=== PATIENT | female | born 1950 | race African-American/Black ===

== ENCOUNTER 2023-10-31 03:46 | Inpatient (IN) | payer MEDICARE ==
[2023-10-31] VITALS (51 sets, daily range): BP systolic 91–146; BP diastolic 50–76; PULSE 86–123; RESP 15–32; TEMP 98.8–99.6
[~2023-10-31] VITALS: Ht 170.2 cm; Wt 84.4 kg
[2023-10-31] MEDS: SUCCINYLCHOLINE CHLORIDE 200MG/10ML IV ONE (03:59)
[2023-10-31] MEDS: ETOMIDATE 2MG/ML 10ML VIAL IV ONE (03:59)
[2023-10-31] MEDS: PROPOFOL 10MG/ML 100ML 100 ML IV ONE (04:30)
[2023-10-31 04:59] LABS: BASOPHILS % 0.6 % (0.0-2.0); DIFFERENTIAL COMMENT 0; EOSINOPHILS % 0.7 % (0.0-5.0); HEMATOCRIT. 39.9 % (36.0-48.0); HEMOGLOBIN. 12.5 g/dL (12.0-16.0); LYMPHOCYTES % 18.8 % (20.0-50.0); MEAN CORPUSCULAR HEMOGLOBIN 24.7 pg (28.0-32.0); MEAN CORPUSCULAR HGB CONC 31.2 g/dL (31.0-37.0); MEAN CORPUSCULAR VOLUME 79.1 fL (81.0-99.0); MEAN PLATELET VOLUME 7.8 fl (7.4-10.4); NEUTROPHILS % 73.9 % (40.0-76.0); PLATELET 441 x1000/uL (130-400); RED BLOOD CELL COUNT 5.04 mill/uL (4.2-5.4); RED CELL DISTRIBUTION WIDTH 16.1 % (11.6-14.6); WHITE BLOOD COUNT 20.7 x1000/uL (4.5-11.0)
[2023-10-31] MEDS ORDERED: NOREPINEPHRINE 8 MG in DEXT 5% WATER 242 ML IV PRN (05:00)
[2023-10-31 05:06] LABS: CHLORIDE 100 mEq/L (98-107); SODIUM 134 mEq/L (136-145)
[2023-10-31 05:07] LABS: CALCIUM 8.6 mg/dL (8.7-10.4); CARBON DIOXIDE 22 mEq/L (21-32)
[2023-10-31 05:12] LABS: CREATININE 1.3 mg/dL (0.6-1.0); UREA NITROGEN BLOOD 10 mg/dL (9-23)
[2023-10-31 05:13] LABS: ALANINE AMINOTRANSFERASE 24 IU/L (10-49); ALBUMIN 4.2 g/dL (3.2-4.8); ASPARTATE AMINOTRANSFERASE 31 IU/L (<34); BILIRUBIN TOTAL 0.2 mg/dL (0.1-1.0); PROTEIN TOTAL 6.9 g/dL (6.0-8.3)
[2023-10-31] MEDS: VANCOMYCIN 1.5GM/250ML 250 ML IV NR (05:15)
[2023-10-31] MEDS ORDERED: ALBUTEROL (0.083%) 2.5MG/3ML NEB HHN STA (05:18)
[2023-10-31 05:29] LABS: BILIRUBIN DIRECT < 0.1 mg/dL (<=3.0)
[2023-10-31 05:30] LABS: GLUCOSE 443 mg/dL (70-105)
[2023-10-31] MEDS ORDERED: MIDAZOLAM 100MG/100ML PMX 100 ML IV PRN (05:30)
[2023-10-31 05:31] LABS: ETHANOL BLOOD < 10 mg/dL (<10); PHOSPHORUS 8.2 mg/dL (2.5-4.9); TROPONIN I HIGH SENSITIVITY 176 ng/L (3.0-34)
[2023-10-31 05:32] LABS: LACTIC ACID 5.4 mmol/L (0.4-2.0)
[2023-10-31 05:43] LABS: PARTIAL THROMBOPLASTIN TIME 23.6 sec (23.4-31.0); PROTHROMBIN TIME 10.9 sec (9.6-11.0)
[2023-10-31 05:57] LABS: BG BASE EXCESS -8.6 mmol/L (-2.0-2.0); BG CARBOXYHEMOGLOBIN 0.3 % (0.5-1.5); BG DEOXYHEMOGLOBIN 0.5 % (0.0-5.0); BG FRACTION INSPIRED OXYGEN 100; BG HCO3 ACT 19.7 mmol/L (22.0-26.0); BG METHEMOGLOBIN 0.3 % (0.0-1.5); BG OXYGEN SATURATION 99.5 % (92.0-98.5); BG OXYHEMOGLOBIN 98.9 % (94.0-97.0); BG PCO2 51.8 mmHg (35.0-45.0); BG PH 7.198 (7.350-7.450); BG PO2 299.7 mmHg (75.0-100.0); BG SAMPLE SITE RIGHT BRACHIAL; BG TOTAL HEMOGLOBIN 13.9 g/dL (12.0-18.0); BG VENT MODE VENT - AC
[2023-10-31] MEDS: PIPERACILLIN/TAZO 3.375G/50ML 50 ML IV SCH ×2 (06:27→14:30)
[2023-10-31] MEDS ORDERED: ASPIRIN 300MG SUPP PR NR (06:30)
[2023-10-31] MEDS: MIDAZOLAM 100MG/100ML PMX 100 ML IV PRN ×2 (06:31→21:13)
[2023-10-31] MEDS: NOREPINEPHRINE 8MG/250ML PMX 250 ML IV PRN (06:31)
[2023-10-31] MEDS: SODIUM CHLORIDE 0.9% 1000ML BAG (SEPSIS BOLUS) IV ONE (06:33)
[2023-10-31] MEDS ORDERED: PROPOFOL 10MG/ML 100ML 100 ML IV NR (07:38)
[2023-10-31] MEDS ORDERED: ACETAMINOPHEN 325MG TABLET PO PRN (08:00)
[2023-10-31] MEDS ORDERED: DOCUSATE SODIUM 100MG CAPSULE PO PRN (08:00)
[2023-10-31] MEDS ORDERED: DEXTROSE 50% WATER 50ML SYRINGE IV PRN (08:00)
[2023-10-31] MEDS ORDERED: IPRATROPIUM/ALBUTEROL 0.5-3(2.5)MG/3ML NEB HHN PRN (08:00)
[2023-10-31] MEDS: PANTOPRAZOLE SODIUM 40 MG/VIAL IV SCH (09:46)
[2023-10-31] MEDS: BLOOD SUGAR DIAGNOSTIC STRIP TEST SCH (09:47)
[2023-10-31] MEDS: METHYLPREDNISOLONE SOD SUCC 40MG/ML (ACT-O-VIAL) IV SCH (09:47)
[2023-10-31] MEDS: ENOXAPARIN 30MG/0.3ML SYR SUBCUT SCH (09:47)
[2023-10-31] MEDS: SODIUM CHLORIDE 0.9% 1,000 ML IV SCH (09:50)
[2023-10-31 09:58] LABS: CREATINE KINASE 225 IU/L (34-145)
[2023-10-31 10:21] LABS: TROPONIN I HIGH SENSITIVITY 2254 ng/L (3.0-34)
[2023-10-31] MEDS ORDERED: PHENYLEPHRINE 50MG/250ML PMX 250 ML IV PRN (10:30)
[2023-10-31] MEDS: INSULIN LISPRO 100 UNITS/ML SUBCUT SCH (10:39)
[2023-10-31 11:21] LABS: BG BASE EXCESS -8.8 mmol/L (-2.0-2.0); BG CARBOXYHEMOGLOBIN 0.1 % (0.5-1.5); BG DEOXYHEMOGLOBIN 9.1 % (0.0-5.0); BG FRACTION INSPIRED OXYGEN 40; BG HCO3 ACT 15.7 mmol/L (22.0-26.0); BG METHEMOGLOBIN 0.3 % (0.0-1.5); BG OXYGEN SATURATION 90.9 % (92.0-98.5); BG OXYHEMOGLOBIN 90.5 % (94.0-97.0); BG PCO2 29.7 mmHg (35.0-45.0); BG PO2 62.9 mmHg (75.0-100.0); BG SAMPLE SITE RIGHT RADIAL; BG TOTAL HEMOGLOBIN 12.8 g/dL (12.0-18.0); BG TOTAL RESPIRATORY RATE 24 b/min; BG VENT MODE VENT - AC
[2023-10-31] MEDS: MAGNESIUM 2 G PREMIX 50 ML IV NR (13:20)
[2023-10-31] MEDS: PHENYLEPHRINE 50MG/250ML PMX 250 ML IV PRN (13:22)
[2023-10-31] MEDS: IPRATROPIUM/ALBUTEROL 0.5-3(2.5)MG/3ML NEB HHN SCH (14:45)
[2023-10-31 15:38] LABS: CLARITY URINE CLEAR (CLEAR); COLOR URINE YELLOW (YELLOW); GLUCOSE URINE 3+ (NEGATIVE); KETONES URINE 2+ (NEGATIVE); LEUKOCYTE ESTERASE URINE NEGATIVE (NEGATIVE); NITRITE URINE NEGATIVE (NEGATIVE); OCCULT BLOOD URINE NEGATIVE (NEGATIVE); PH URINE 5.5 (4.5-8.0); PROTEIN URINE 1+ (NEGATIVE); SPECIFIC GRAVITY URINE 1.026 (1.005-1.030); UROBILINOGEN URINE 0.2 E.U./dL (0.2-1.0)
[2023-10-31 15:54] LABS: *AMPHETAMINES SCREEN URINE NEGATIVE (NEGATIVE); *BARBITURATES SCREEN URINE NEGATIVE (NEGATIVE); *BENZODIAZEPINES SCREEN URINE PRESUMPTIVE POSITIVE (NEGATIVE)
[2023-10-31 15:55] LABS: *COCAINE SCREEN URINE NEGATIVE (NEGATIVE); CANNABINOID URINE SCREEN NEGATIVE (NEGATIVE); ECSTASY MDMA SCREEN URINE NEGATIVE (NEGATIVE); METHADONE URINE SCREEN NEGATIVE (NEGATIVE); OPIATES URINE SCREEN NEGATIVE (NEGATIVE); PHENCYCLIDINE URINE SCREEN NEGATIVE (NEGATIVE)
[2023-10-31] MEDS: DOXYCYCLINE 100MG/100ML 100 ML IV SCH (15:59)
[2023-10-31 16:06] LABS: BACTERIA URINE 1+; RBC URINE 0-2 /hpf (0-2); SQUAMOUS EPITHELIAL CELL URINE FEW /lpf (RARE/1+); WBC URINE 0-2 /hpf (0-2)
[2023-10-31 16:31] LABS: TROPONIN I HIGH SENSITIVITY 3595 ng/L (3.0-34)
[2023-10-31] MEDS: MONTELUKAST SODIUM 10MG TABLET PO SCH (17:36)
[2023-10-31] MEDS: INSULIN GLARGINE 100 UNITS/ML SUBCUT SCH (22:18)
[2023-10-31 23:58] LABS: TROPONIN I HIGH SENSITIVITY 2332 ng/L (3.0-34)
[2023-11-01] VITALS (60 sets, daily range): BP systolic 53–160; BP diastolic 40–71; PULSE 92–143; RESP 13–53; TEMP 97.8–98.9
[2023-11-01 04:54] LABS: HEMATOCRIT. 33.9 % (36.0-48.0); HEMOGLOBIN. 10.9 g/dL (12.0-16.0); MEAN CORPUSCULAR HEMOGLOBIN 24.8 pg (28.0-32.0); MEAN CORPUSCULAR HGB CONC 32.1 g/dL (31.0-37.0); MEAN CORPUSCULAR VOLUME 77.4 fL (81.0-99.0); PLATELET 333 x1000/uL (130-400); RED BLOOD CELL COUNT 4.39 mill/uL (4.2-5.4); RED CELL DISTRIBUTION WIDTH 16.3 % (11.6-14.6); WHITE BLOOD COUNT 11.1 x1000/uL (4.5-11.0)
[2023-11-01 04:59] LABS: CHLORIDE 103 mEq/L (98-107); POTASSIUM 4.3 mEq/L (3.5-5.1); SODIUM 133 mEq/L (136-145)
[2023-11-01 05:01] LABS: CARBON DIOXIDE 18 mEq/L (21-32)
[2023-11-01 05:02] LABS: CALCIUM 8.4 mg/dL (8.7-10.4)
[2023-11-01 05:07] LABS: CREATININE 1.1 mg/dL (0.6-1.0); UREA NITROGEN BLOOD 16 mg/dL (9-23)
[2023-11-01 05:08] LABS: ALBUMIN 3.7 g/dL (3.2-4.8)
[2023-11-01 05:09] LABS: ALANINE AMINOTRANSFERASE 22 IU/L (10-49); ASPARTATE AMINOTRANSFERASE 36 IU/L (<34); BILIRUBIN TOTAL 0.3 mg/dL (0.1-1.0)
[2023-11-01 05:59] LABS: PROTHROMBIN TIME 11.2 sec (9.6-11.0)
[2023-11-01 06:01] LABS: GLUCOSE 404 mg/dL (70-105); TROPONIN I HIGH SENSITIVITY 2018 ng/L (3.0-34)
[2023-11-01 07:00] LABS: DIFFERENTIAL COMMENT 1
[2023-11-01] MEDS ORDERED: INSULIN REGULAR (HUMULIN R) UD 100 UNITS/ML SYR SUBCUT SCH (08:00)
[2023-11-01] MEDS: INSULIN REGULAR (HUMULIN R) 1000UNITS/10ML VIAL SUBCUT SCH (08:34)
[2023-11-01 09:42] LABS: PLATELET ESTIMATE NORMAL
[2023-11-01 09:44] LABS: BG CARBOXYHEMOGLOBIN 0.3 % (0.5-1.5); BG DEOXYHEMOGLOBIN 3.5 % (0.0-5.0); BG FRACTION INSPIRED OXYGEN 60; BG HCO3 ACT 15.1 mmol/L (22.0-26.0); BG METHEMOGLOBIN 0.3 % (0.0-1.5); BG OXYGEN SATURATION 96.5 % (92.0-98.5); BG OXYHEMOGLOBIN 95.9 % (94.0-97.0); BG PCO2 27.2 mmHg (35.0-45.0); BG PH 7.361 (7.350-7.450); BG PO2 93.6 mmHg (75.0-100.0); BG SAMPLE SITE RIGHT RADIAL; BG TOTAL HEMOGLOBIN 11.6 g/dL (12.0-18.0); BG VENT MODE VENT - AC
[2023-11-01 10:19] LABS: ANISOCYTOSIS 1+; MICROCYTOSIS 1+
[2023-11-01] MEDS: MAGNESIUM 2 G PREMIX 50 ML IV NR (11:15)
[2023-11-01] MEDS: DEXT 5%/0.9% NACL 1,000 ML IV SCH (13:15)
[2023-11-01] MEDS ORDERED: KCL 20MEQ/100ML PREMIX 100 ML IV PRN (13:15)
[2023-11-01] MEDS ORDERED: MAGNESIUM 2 G PREMIX 50 ML IV PRN (13:15)
[2023-11-01] MEDS ORDERED: POTASSIUM CHLORIDE 40 MEQ in SODIUM CHLORIDE 0.9% 230 ML IV PRN (13:15)
[2023-11-01] MEDS ORDERED: SODIUM PHOSPHATE 15 MMOL in SODIUM CHLORIDE 0.9% 245 ML IV PRN (13:15)
[2023-11-01] MEDS ORDERED: DEXTROSE 50% WATER 50ML SYRINGE IV PRN (13:15)
[2023-11-01] MEDS: SODIUM CHLORIDE 0.9% 1,000 ML IV SCH (13:38)
[2023-11-01] MEDS: INSULIN GLARGINE 100 UNITS/ML SUBCUT NR (13:39)
[2023-11-01 13:52] LABS: BG BASE EXCESS -6.4 mmol/L (-2.0-2.0); BG CARBOXYHEMOGLOBIN 0.3 % (0.5-1.5); BG DEOXYHEMOGLOBIN 12.2 % (0.0-5.0); BG FRACTION INSPIRED OXYGEN 50; BG HCO3 ACT 18.4 mmol/L (22.0-26.0); BG METHEMOGLOBIN 0.3 % (0.0-1.5); BG OXYGEN SATURATION 87.7 % (92.0-98.5); BG OXYHEMOGLOBIN 87.2 % (94.0-97.0); BG PCO2 34.4 mmHg (35.0-45.0); BG PH 7.346 (7.350-7.450); BG PO2 57.4 mmHg (75.0-100.0); BG SAMPLE SITE RIGHT RADIAL; BG TOTAL HEMOGLOBIN 13.5 g/dL (12.0-18.0); BG VENT MODE VENT - AC
[2023-11-01] MEDS ORDERED: BLOOD SUGAR DIAGNOSTIC STRIP TEST PRN (14:00)
[2023-11-01] MEDS: INSULIN REGULAR (DRIP) 100 UNITS in SODIUM CHLORIDE 0.9% 99 ML IV SCH (14:17)
[2023-11-01] MEDS: BLOOD SUGAR DIAGNOSTIC STRIP TEST SCH (14:23)
[2023-11-01] MEDS: PROPOFOL 10MG/ML 100ML 100 ML IV PRN (14:36)
[2023-11-01] MEDS: ACETYLCYSTEINE 200MG/ML 20% VIAL 4ML INH SCH (15:23)
[2023-11-01] MEDS ORDERED: HEPARIN 5000 UNITS/ML VIAL IV PRN (15:45)
[2023-11-01] MEDS ORDERED: HEPARIN 25,000 UNITS PREMIX 250 ML IV PRN (15:45)
[2023-11-01] MEDS ORDERED: SODIUM CHLORIDE 3% FOR INH 15ML NEB INH SCH (16:00)
[2023-11-01 16:04] LABS: CHLORIDE 107 mEq/L (98-107); POTASSIUM 4.2 mEq/L (3.5-5.1); SODIUM 137 mEq/L (136-145)
[2023-11-01 16:05] LABS: CALCIUM 7.9 mg/dL (8.7-10.4); CARBON DIOXIDE 20 mEq/L (21-32)
[2023-11-01 16:10] LABS: CREATININE 1.1 mg/dL (0.6-1.0); GLUCOSE 362 mg/dL (70-105); UREA NITROGEN BLOOD 18 mg/dL (9-23)
[2023-11-01 16:12] LABS: PHOSPHORUS 3.4 mg/dL (2.5-4.9)
[2023-11-01] MEDS ORDERED: HEPARIN BOLUS PRN aPTT 37-44 IV ×2 (16:45→23:00)
[2023-11-01] MEDS ORDERED: HEPARIN BOLUS PRN aPTT <36 IV ×2 (16:45→23:00)
[2023-11-01] MEDS ORDERED: HEPARIN 25,000 UNITS PREMIX 250 ML IV SCH (16:45)
[2023-11-01] MEDS: HEPARIN 25,000 UNITS PREMIX 250 ML IV SCH (16:56)
[2023-11-01] MEDS ORDERED: IOHEXOL-350 100 ML BOTTLE ONE (19:15)
[2023-11-01 20:59] LABS: CHLORIDE 110 mEq/L (98-107); POTASSIUM 3.9 mEq/L (3.5-5.1); SODIUM 139 mEq/L (136-145)
[2023-11-01 21:01] LABS: CARBON DIOXIDE 22 mEq/L (21-32)
[2023-11-01 21:08] LABS: PHOSPHORUS 2.8 mg/dL (2.5-4.9)
[2023-11-01] MEDS: INSULIN GLARGINE 100 UNITS/ML SUBCUT SCH (22:34)
[2023-11-02] VITALS (80 sets, daily range): BP systolic 91–157; BP diastolic 52–76; PULSE 97–138; RESP 18–35; TEMP 97.5–100.4
[2023-11-02 00:31] LABS: CHLORIDE 111 mEq/L (98-107); POTASSIUM 3.9 mEq/L (3.5-5.1); SODIUM 139 mEq/L (136-145)
[2023-11-02 00:32] LABS: CARBON DIOXIDE 20 mEq/L (21-32)
[2023-11-02 00:40] LABS: PHOSPHORUS 2.4 mg/dL (2.5-4.9)
[2023-11-02 05:33] LABS: CARBON DIOXIDE 21 mEq/L (21-32); CHLORIDE 111 mEq/L (98-107); SODIUM 139 mEq/L (136-145)
[2023-11-02 05:34] LABS: CALCIUM 7.9 mg/dL (8.7-10.4)
[2023-11-02 05:38] LABS: CREATININE 0.8 mg/dL (0.6-1.0); GLUCOSE 204 mg/dL (70-105)
[2023-11-02 05:39] LABS: TRIGLYCERIDE 154 mg/dL (0-150); UREA NITROGEN BLOOD 14 mg/dL (9-23)
[2023-11-02 05:41] LABS: PHOSPHORUS 2.6 mg/dL (2.5-4.9)
[2023-11-02 05:45] LABS: BASOPHILS % 0.1 % (0.0-2.0); DIFFERENTIAL COMMENT 0; EOSINOPHILS % 0.3 % (0.0-5.0); HEMOGLOBIN. 10.9 g/dL (12.0-16.0); LYMPHOCYTES % 11.8 % (20.0-50.0); MEAN CORPUSCULAR HEMOGLOBIN 25.2 pg (28.0-32.0); MEAN CORPUSCULAR VOLUME 78.7 fL (81.0-99.0); MEAN PLATELET VOLUME 7.9 fl (7.4-10.4); MONOCYTES % 8.1 % (2.0-8.0); NEUTROPHILS % 79.7 % (40.0-76.0); PLATELET 330 x1000/uL (130-400); RED BLOOD CELL COUNT 4.31 mill/uL (4.2-5.4); RED CELL DISTRIBUTION WIDTH 16.8 % (11.6-14.6)
[2023-11-02 06:23] LABS: TROPONIN I HIGH SENSITIVITY 1124 ng/L (3.0-34)
[2023-11-02] MEDS ORDERED: DEXTROSE 50% WATER 50ML SYRINGE IV PRN (08:45)
[2023-11-02] MEDS: ENOXAPARIN 30MG/0.3ML SYR SUBCUT SCH (08:53)
[2023-11-02 08:56] LABS: BG BASE EXCESS -4.3 mmol/L (-2.0-2.0); BG CARBOXYHEMOGLOBIN 0.3 % (0.5-1.5); BG DEOXYHEMOGLOBIN 8.3 % (0.0-5.0); BG FRACTION INSPIRED OXYGEN 50; BG HCO3 ACT 19.7 mmol/L (22.0-26.0); BG METHEMOGLOBIN 0.2 % (0.0-1.5); BG OXYGEN SATURATION 91.7 % (92.0-98.5); BG OXYHEMOGLOBIN 91.2 % (94.0-97.0); BG PCO2 32.9 mmHg (35.0-45.0); BG PH 7.395 (7.350-7.450); BG PO2 64.5 mmHg (75.0-100.0); BG SAMPLE SITE LEFT RADIAL; BG TOTAL HEMOGLOBIN 12.4 g/dL (12.0-18.0); BG VENT MODE VENT - AC
[2023-11-02] MEDS: BLOOD SUGAR DIAGNOSTIC STRIP TEST SCH (12:12)
[2023-11-02] MEDS: INSULIN LISPRO 100 UNITS/ML SUBCUT SCH (12:27)
[2023-11-02] MEDS: PROPOFOL 10MG/ML 100ML 100 ML IV PRN (19:37)
[2023-11-02] MEDS: ACETAMINOPHEN 650MG/20.3ML UDC GT PRN (22:01)
[2023-11-03] VITALS (52 sets, daily range): BP systolic 107–156; BP diastolic 54–82; PULSE 89–129; RESP 4–29; TEMP 98.9–101.3
[2023-11-03 05:07] LABS: BASOPHILS % 0.3 % (0.0-2.0); DIFFERENTIAL COMMENT 0; HEMATOCRIT. 32.6 % (36.0-48.0); HEMOGLOBIN. 10.5 g/dL (12.0-16.0); LYMPHOCYTES % 16.9 % (20.0-50.0); MEAN CORPUSCULAR HEMOGLOBIN 24.7 pg (28.0-32.0); MEAN CORPUSCULAR HGB CONC 32.1 g/dL (31.0-37.0); MEAN PLATELET VOLUME 8.1 fl (7.4-10.4); MONOCYTES % 8.4 % (2.0-8.0); NEUTROPHILS % 73.4 % (40.0-76.0); PLATELET 355 x1000/uL (130-400); RED BLOOD CELL COUNT 4.23 mill/uL (4.2-5.4); RED CELL DISTRIBUTION WIDTH 16.9 % (11.6-14.6); WHITE BLOOD COUNT 12.3 x1000/uL (4.5-11.0)
[2023-11-03 05:09] LABS: CARBON DIOXIDE 22 mEq/L (21-32); CHLORIDE 108 mEq/L (98-107); SODIUM 138 mEq/L (136-145)
[2023-11-03 05:10] LABS: CALCIUM 8.3 mg/dL (8.7-10.4)
[2023-11-03 05:15] LABS: CREATININE 0.9 mg/dL (0.6-1.0); GLUCOSE 230 mg/dL (70-105); TRIGLYCERIDE 182 mg/dL (0-150); UREA NITROGEN BLOOD 18 mg/dL (9-23)
[2023-11-03] MEDS ORDERED: LIDOCAINE HCL 1% 10 MG/ML 10ML VIAL ONE (07:10)
[2023-11-03] MEDS: SODIUM CHLORIDE 3% FOR INH 4ML NEB INH SCH (08:12)
[2023-11-03] MEDS: FUROSEMIDE 40MG/4ML VIAL IVP SCH (09:29)
[2023-11-03 09:42] LABS: BG BASE EXCESS -4.3 mmol/L (-2.0-2.0); BG CARBOXYHEMOGLOBIN 0.3 % (0.5-1.5); BG DEOXYHEMOGLOBIN 5.9 % (0.0-5.0); BG FRACTION INSPIRED OXYGEN 80; BG HCO3 ACT 19.3 mmol/L (22.0-26.0); BG METHEMOGLOBIN 0.2 % (0.0-1.5); BG OXYGEN SATURATION 94.1 % (92.0-98.5); BG OXYHEMOGLOBIN 93.6 % (94.0-97.0); BG PCO2 30.7 mmHg (35.0-45.0); BG PH 7.417 (7.350-7.450); BG PO2 71.4 mmHg (75.0-100.0); BG SAMPLE SITE RIGHT RADIAL; BG TOTAL HEMOGLOBIN 11.4 g/dL (12.0-18.0); BG VENT MODE VENT - AC
[2023-11-03] MEDS: ONDANSETRON HCL 4MG/2ML INJ IV PRN (12:52)
[2023-11-03] MEDS: ACETAMINOPHEN 650MG/20.3ML UDC GT PRN (13:07)
[2023-11-03] MEDS: INSULIN GLARGINE 100 UNITS/ML SUBCUT SCH (21:21)
[2023-11-04] VITALS (37 sets, daily range): BP systolic 108–156; BP diastolic 52–77; PULSE 85–112; RESP 19–26; TEMP 99–100.5
[2023-11-04 05:25] LABS: BASOPHILS % 0.2 % (0.0-2.0); DIFFERENTIAL COMMENT 0; HEMATOCRIT. 31.5 % (36.0-48.0); HEMOGLOBIN. 10.2 g/dL (12.0-16.0); LYMPHOCYTES % 13.7 % (20.0-50.0); MEAN CORPUSCULAR HEMOGLOBIN 24.9 pg (28.0-32.0); MEAN CORPUSCULAR HGB CONC 32.5 g/dL (31.0-37.0); MEAN CORPUSCULAR VOLUME 76.7 fL (81.0-99.0); MEAN PLATELET VOLUME 8.1 fl (7.4-10.4); MONOCYTES % 7.5 % (2.0-8.0); NEUTROPHILS % 77.6 % (40.0-76.0); PLATELET 356 x1000/uL (130-400); RED BLOOD CELL COUNT 4.11 mill/uL (4.2-5.4); RED CELL DISTRIBUTION WIDTH 16.2 % (11.6-14.6); WHITE BLOOD COUNT 11.4 x1000/uL (4.5-11.0)
[2023-11-04 05:28] LABS: CALCIUM 8.8 mg/dL (8.7-10.4); CARBON DIOXIDE 23 mEq/L (21-32); CHLORIDE 106 mEq/L (98-107); POTASSIUM 3.2 mEq/L (3.5-5.1); SODIUM 139 mEq/L (136-145)
[2023-11-04 05:33] LABS: CREATININE 0.9 mg/dL (0.6-1.0)
[2023-11-04 05:34] LABS: GLUCOSE 231 mg/dL (70-105); UREA NITROGEN BLOOD 21 mg/dL (9-23)
[2023-11-04 08:19] LABS: BG BASE EXCESS 1.5 mmol/L (-2.0-2.0); BG CARBOXYHEMOGLOBIN 0.3 % (0.5-1.5); BG DEOXYHEMOGLOBIN 5.1 % (0.0-5.0); BG FRACTION INSPIRED OXYGEN 60; BG HCO3 ACT 23.9 mmol/L (22.0-26.0); BG METHEMOGLOBIN 0.2 % (0.0-1.5); BG OXYGEN SATURATION 94.9 % (92.0-98.5); BG OXYHEMOGLOBIN 94.4 % (94.0-97.0); BG PCO2 29.9 mmHg (35.0-45.0); BG PH 7.521 (7.350-7.450); BG PO2 72.5 mmHg (75.0-100.0); BG SAMPLE SITE RIGHT RADIAL; BG VENT MODE VENT - AC
[2023-11-04] MEDS: KCL 20MEQ/100ML PREMIX 100 ML IV SCH (10:01)
[2023-11-04] MEDS: SODIUM CHLORIDE 3% FOR INH 4ML NEB INH NR (10:14)
[2023-11-05] VITALS (35 sets, daily range): BP systolic 124–169; BP diastolic 54–113; PULSE 99–138; RESP 15–40; TEMP 98.3–100.8
[2023-11-05] MEDS: INSULIN LISPRO 100 UNITS/ML SUBCUT SCH (00:47)
[2023-11-05] MEDS: DILTIAZEM HCL 5MG/ML 5ML VIAL IV PRN (02:56)
[2023-11-05 05:40] LABS: BASOPHILS % 0.3 % (0.0-2.0); DIFFERENTIAL COMMENT 0; EOSINOPHILS % 1.6 % (0.0-5.0); HEMATOCRIT. 33.5 % (36.0-48.0); HEMOGLOBIN. 10.7 g/dL (12.0-16.0); LYMPHOCYTES % 9.6 % (20.0-50.0); MEAN CORPUSCULAR HEMOGLOBIN 24.8 pg (28.0-32.0); MEAN CORPUSCULAR HGB CONC 31.9 g/dL (31.0-37.0); MONOCYTES % 7.2 % (2.0-8.0); NEUTROPHILS % 81.3 % (40.0-76.0); PLATELET 416 x1000/uL (130-400); RED CELL DISTRIBUTION WIDTH 16.1 % (11.6-14.6); WHITE BLOOD COUNT 15.5 x1000/uL (4.5-11.0)
[2023-11-05 05:45] LABS: CHLORIDE 108 mEq/L (98-107); POTASSIUM 3.7 mEq/L (3.5-5.1); SODIUM 142 mEq/L (136-145)
[2023-11-05 05:46] LABS: CARBON DIOXIDE 27 mEq/L (21-32)
[2023-11-05 05:47] LABS: CALCIUM 9.7 mg/dL (8.7-10.4)
[2023-11-05 05:51] LABS: CREATININE 0.9 mg/dL (0.6-1.0); GLUCOSE 268 mg/dL (70-105)
[2023-11-05 05:52] LABS: UREA NITROGEN BLOOD 20 mg/dL (9-23)
[2023-11-05] MEDS: CLONIDINE 0.1MG TABLET PO PRN (07:09)
[2023-11-05 08:24] LABS: BG BASE EXCESS 1.6 mmol/L (-2.0-2.0); BG CARBOXYHEMOGLOBIN 0.2 % (0.5-1.5); BG DEOXYHEMOGLOBIN 3.7 % (0.0-5.0); BG FRACTION INSPIRED OXYGEN 60; BG HCO3 ACT 26.5 mmol/L (22.0-26.0); BG METHEMOGLOBIN 0.2 % (0.0-1.5); BG OXYGEN SATURATION 96.3 % (92.0-98.5); BG OXYHEMOGLOBIN 95.9 % (94.0-97.0); BG PCO2 43.1 mmHg (35.0-45.0); BG PH 7.407 (7.350-7.450); BG PO2 87.1 mmHg (75.0-100.0); BG SAMPLE SITE RIGHT RADIAL; BG TOTAL HEMOGLOBIN 12.4 g/dL (12.0-18.0); BG VENT MODE VENT - AC
[2023-11-05] MEDS: MAGNESIUM 2 G PREMIX 50 ML IV NR (10:40)
[2023-11-05] MEDS: AMLODIPINE 5MG TABLET PO SCH (10:40)
[2023-11-05] MEDS: METOPROLOL TARTRATE 50MG TABLET PO SCH (15:09)
[2023-11-05] MEDS: LACTOBACILLUS GG CAPSULE PO SCH (18:09)
[2023-11-05] MEDS: ALBUTEROL (0.083%) 2.5MG/3ML NEB ONE (20:37)
[2023-11-06] VITALS (61 sets, daily range): BP systolic 83–184; BP diastolic 50–93; PULSE 89–120; RESP 17–31; TEMP 98.8–101.5
[2023-11-06] MEDS: ACETAMINOPHEN 325MG TABLET PO PRN (01:15)
[2023-11-06 05:02] LABS: BASOPHILS % 0.6 % (0.0-2.0); DIFFERENTIAL COMMENT 0; EOSINOPHILS % 1.6 % (0.0-5.0); HEMATOCRIT. 33.8 % (36.0-48.0); HEMOGLOBIN. 10.8 g/dL (12.0-16.0); LYMPHOCYTES % 11.5 % (20.0-50.0); MEAN CORPUSCULAR HEMOGLOBIN 24.3 pg (28.0-32.0); MEAN CORPUSCULAR HGB CONC 31.9 g/dL (31.0-37.0); MEAN CORPUSCULAR VOLUME 76.3 fL (81.0-99.0); MEAN PLATELET VOLUME 7.6 fl (7.4-10.4); MONOCYTES % 9.7 % (2.0-8.0); NEUTROPHILS % 76.6 % (40.0-76.0); PLATELET 407 x1000/uL (130-400); RED BLOOD CELL COUNT 4.42 mill/uL (4.2-5.4); RED CELL DISTRIBUTION WIDTH 15.9 % (11.6-14.6); WHITE BLOOD COUNT 13.4 x1000/uL (4.5-11.0)
[2023-11-06 05:08] LABS: CHLORIDE 105 mEq/L (98-107); POTASSIUM 3.2 mEq/L (3.5-5.1); SODIUM 143 mEq/L (136-145)
[2023-11-06 05:09] LABS: CALCIUM 9.8 mg/dL (8.7-10.4); CARBON DIOXIDE 30 mEq/L (21-32)
[2023-11-06 05:14] LABS: GLUCOSE 232 mg/dL (70-105); UREA NITROGEN BLOOD 24 mg/dL (9-23)
[2023-11-06] MEDS: METHYLPREDNISOLONE SOD SUCC 125MG/2ML (ACT-O-VIAL) IV SCH (09:19)
[2023-11-06] MEDS: POTASSIUM CHLORIDE 20MEQ/PACKET PO NR (09:19)
[2023-11-06] MEDS: LOSARTAN 50 MG TABLET PO SCH (11:39)
[2023-11-06] MEDS: CLONIDINE 0.1MG TABLET PO PRN (11:39)
[2023-11-06] MEDS: IPRATROPIUM/ALBUTEROL 0.5-3(2.5)MG/3ML NEB HHN PRN (13:07)
[2023-11-06] MEDS: IPRATROPIUM/ALBUTEROL 0.5-3(2.5)MG/3ML NEB HHN SCH (14:03)
[2023-11-06] MEDS: ACETYLCYSTEINE 200MG/ML 20% VIAL 4ML INH SCH (14:04)
[2023-11-07] VITALS (62 sets, daily range): BP systolic 126–166; BP diastolic 49–89; PULSE 86–117; RESP 12–32; TEMP 98–102
[2023-11-07 04:46] LABS: BASOPHILS % 0.1 % (0.0-2.0); CHLORIDE 105 mEq/L (98-107); DIFFERENTIAL COMMENT 0; HEMATOCRIT. 32.6 % (36.0-48.0); HEMOGLOBIN. 10.3 g/dL (12.0-16.0); LYMPHOCYTES % 8.2 % (20.0-50.0); MEAN CORPUSCULAR HEMOGLOBIN 24.5 pg (28.0-32.0); MEAN CORPUSCULAR HGB CONC 31.7 g/dL (31.0-37.0); MEAN CORPUSCULAR VOLUME 77.1 fL (81.0-99.0); MONOCYTES % 6.3 % (2.0-8.0); NEUTROPHILS % 85.4 % (40.0-76.0); PLATELET 428 x1000/uL (130-400); POTASSIUM 3.6 mEq/L (3.5-5.1); RED BLOOD CELL COUNT 4.23 mill/uL (4.2-5.4); SODIUM 143 mEq/L (136-145); WHITE BLOOD COUNT 12.5 x1000/uL (4.5-11.0)
[2023-11-07 04:47] LABS: CALCIUM 9.6 mg/dL (8.7-10.4); CARBON DIOXIDE 29 mEq/L (21-32)
[2023-11-07 04:52] LABS: CREATININE 1.1 mg/dL (0.6-1.0); GLUCOSE 349 mg/dL (70-105); UREA NITROGEN BLOOD 34 mg/dL (9-23)
[2023-11-07 04:54] LABS: PHOSPHORUS 3.8 mg/dL (2.5-4.9)
[2023-11-07 10:37] LABS: BG BASE EXCESS 4.4 mmol/L (-2.0-2.0); BG CARBOXYHEMOGLOBIN 0.4 % (0.5-1.5); BG DEOXYHEMOGLOBIN 11.1 % (0.0-5.0); BG FRACTION INSPIRED OXYGEN 35; BG HCO3 ACT 30.3 mmol/L (22.0-26.0); BG METHEMOGLOBIN 0.2 % (0.0-1.5); BG OXYGEN SATURATION 88.8 % (92.0-98.5); BG OXYHEMOGLOBIN 88.3 % (94.0-97.0); BG PCO2 50.9 mmHg (35.0-45.0); BG PH 7.393 (7.350-7.450); BG PO2 59.4 mmHg (75.0-100.0); BG SAMPLE SITE RIGHT RADIAL; BG TOTAL HEMOGLOBIN 12.8 g/dL (12.0-18.0); BG VENT MODE T PIECE
[2023-11-07] MEDS: INSULIN LISPRO 100 UNITS/ML SUBCUT SCH (12:27)
[2023-11-07] MEDS: METHYLPREDNISOLONE SOD SUCC 40MG/ML (ACT-O-VIAL) IV SCH (17:17)
[2023-11-08] VITALS (63 sets, daily range): BP systolic 115–171; BP diastolic 44–136; PULSE 87–131; RESP 12–37; TEMP 99.6–101.6; O2SAT 94–96
[2023-11-08 10:10] LABS: POTASSIUM 3.5 mEq/L (3.5-5.1)
[2023-11-08 10:12] LABS: CALCIUM 9.2 mg/dL (8.7-10.4)
[2023-11-08 10:16] LABS: CREATININE 1.1 mg/dL (0.6-1.0)
[2023-11-08 11:55] LABS: BASOPHILS % 0.3 % (0.0-2.0); DIFFERENTIAL COMMENT 0; HEMATOCRIT. 36.5 % (36.0-48.0); HEMOGLOBIN. 11.2 g/dL (12.0-16.0); LYMPHOCYTES % 8.9 % (20.0-50.0); MEAN CORPUSCULAR HEMOGLOBIN 23.9 pg (28.0-32.0); MEAN CORPUSCULAR HGB CONC 30.8 g/dL (31.0-37.0); MEAN CORPUSCULAR VOLUME 77.6 fL (81.0-99.0); MEAN PLATELET VOLUME 8.1 fl (7.4-10.4); MONOCYTES % 7.2 % (2.0-8.0); NEUTROPHILS % 83.6 % (40.0-76.0); PLATELET 496 x1000/uL (130-400); RED BLOOD CELL COUNT 4.71 mill/uL (4.2-5.4); RED CELL DISTRIBUTION WIDTH 16.2 % (11.6-14.6); WHITE BLOOD COUNT 14.2 x1000/uL (4.5-11.0)
[2023-11-08 12:31] LABS: BG BASE EXCESS 7.5 mmol/L (-2.0-2.0); BG CARBOXYHEMOGLOBIN 0.3 % (0.5-1.5); BG DEOXYHEMOGLOBIN 6.5 % (0.0-5.0); BG FRACTION INSPIRED OXYGEN 60; BG HCO3 ACT 33.1 mmol/L (22.0-26.0); BG METHEMOGLOBIN 0.3 % (0.0-1.5); BG OXYGEN SATURATION 93.5 % (92.0-98.5); BG OXYHEMOGLOBIN 92.9 % (94.0-97.0); BG PCO2 50.4 mmHg (35.0-45.0); BG PH 7.435 (7.350-7.450); BG PO2 71.5 mmHg (75.0-100.0); BG SAMPLE SITE RIGHT BRACHIAL; BG TOTAL HEMOGLOBIN 13.4 g/dL (12.0-18.0); BG VENT MODE T PIECE
[2023-11-08] MEDS: POTASSIUM CHLORIDE 20MEQ/PACKET NG NR (12:52)
[2023-11-08] MEDS: PIPERACILLIN/TAZO 3.375G/50ML 50 ML IV SCH (14:08)
[2023-11-09] VITALS (59 sets, daily range): BP systolic 101–172; BP diastolic 46–118; PULSE 95–125; RESP 20–39; TEMP 98.4–99.4; O2SAT 94–96
[2023-11-09 05:54] LABS: BASOPHILS % 0.1 % (0.0-2.0); DIFFERENTIAL COMMENT 0; HEMATOCRIT. 37.5 % (36.0-48.0); HEMOGLOBIN. 11.8 g/dL (12.0-16.0); LYMPHOCYTES % 10.3 % (20.0-50.0); MEAN CORPUSCULAR HEMOGLOBIN 24.4 pg (28.0-32.0); MEAN CORPUSCULAR HGB CONC 31.4 g/dL (31.0-37.0); MEAN CORPUSCULAR VOLUME 77.5 fL (81.0-99.0); MONOCYTES % 8.2 % (2.0-8.0); NEUTROPHILS % 81.4 % (40.0-76.0); PLATELET 487 x1000/uL (130-400); RED BLOOD CELL COUNT 4.84 mill/uL (4.2-5.4); RED CELL DISTRIBUTION WIDTH 16.2 % (11.6-14.6); WHITE BLOOD COUNT 12.9 x1000/uL (4.5-11.0)
[2023-11-09 06:01] LABS: CARBON DIOXIDE 32 mEq/L (21-32); CHLORIDE 108 mEq/L (98-107); POTASSIUM 3.8 mEq/L (3.5-5.1); SODIUM 148 mEq/L (136-145)
[2023-11-09 06:07] LABS: GLUCOSE 262 mg/dL (70-105); UREA NITROGEN BLOOD 28 mg/dL (9-23)
[2023-11-09] MEDS: INSULIN LISPRO 100 UNITS/ML SUBCUT SCH (06:25)
[2023-11-09] MEDS: BLOOD SUGAR DIAGNOSTIC STRIP TEST SCH (07:13)
[2023-11-09 08:57] LABS: BG CARBOXYHEMOGLOBIN 0.6 % (0.5-1.5); BG DEOXYHEMOGLOBIN 5.1 % (0.0-5.0); BG FRACTION INSPIRED OXYGEN 80; BG METHEMOGLOBIN 0.3 % (0.0-1.5); BG OXYGEN SATURATION 94.9 % (92.0-98.5); BG PH 7.464 (7.350-7.450); BG PO2 77.7 mmHg (75.0-100.0); BG SAMPLE SITE RIGHT RADIAL; BG TOTAL HEMOGLOBIN 13.4 g/dL (12.0-18.0); BG VENT MODE COOL AEROSOL
[2023-11-09] MEDS: POTASSIUM CHLORIDE 20MEQ/PACKET PO SCH (09:14)
[2023-11-09] MEDS: FUROSEMIDE 40MG/4ML VIAL IVP SCH (09:14)
[2023-11-09] MEDS: CARVEDILOL 12.5MG TABLET PO SCH (09:17)
[2023-11-09] MEDS: AMLODIPINE 2.5MG TABLET PO SCH (21:30)
[2023-11-09] MEDS: CARVEDILOL 6.25 MG TABLET PO SCH (21:30)
[2023-11-10] VITALS (15 sets, daily range): BP systolic 104–145; BP diastolic 54–87; PULSE 84–103; RESP 19–34; TEMP 97.5–98.4; O2SAT 92–97
[2023-11-10 05:57] LABS: CHLORIDE 99 mEq/L (98-107); POTASSIUM 3.8 mEq/L (3.5-5.1); SODIUM 137 mEq/L (136-145)
[2023-11-10 05:58] LABS: BASOPHILS % 0.2 % (0.0-2.0); CALCIUM 9.5 mg/dL (8.7-10.4); CARBON DIOXIDE 32 mEq/L (21-32); DIFFERENTIAL COMMENT 0; HEMATOCRIT. 39.5 % (36.0-48.0); HEMOGLOBIN. 12.3 g/dL (12.0-16.0); LYMPHOCYTES % 9.1 % (20.0-50.0); MEAN CORPUSCULAR HGB CONC 31.2 g/dL (31.0-37.0); MEAN PLATELET VOLUME 8.1 fl (7.4-10.4); MONOCYTES % 5.1 % (2.0-8.0); NEUTROPHILS % 85.6 % (40.0-76.0); PLATELET 482 x1000/uL (130-400); RED BLOOD CELL COUNT 5.14 mill/uL (4.2-5.4); RED CELL DISTRIBUTION WIDTH 15.8 % (11.6-14.6); WHITE BLOOD COUNT 14.7 x1000/uL (4.5-11.0)
[2023-11-10 06:03] LABS: CREATININE 0.9 mg/dL (0.6-1.0); GLUCOSE 238 mg/dL (70-105); UREA NITROGEN BLOOD 27 mg/dL (9-23)
[2023-11-10] MEDS: LOSARTAN 25 MG TABLET PO SCH (08:51)
[2023-11-10] MEDS: ENOXAPARIN 40MG/0.4ML SYR SUBCUT SCH (08:52)
[2023-11-10] MEDS: FUROSEMIDE 40MG TABLET PO SCH (17:57)
[2023-11-10] MEDS ORDERED: FUROSEMIDE 40MG TABLET PO SCH (21:00)
[2023-11-10] MEDS: MELATONIN 3MG TABLET PO SCH (21:20)
[2023-11-10] MEDS: INSULIN GLARGINE 100 UNITS/ML SUBCUT SCH (21:23)
[2023-11-11] VITALS (11 sets, daily range): BP systolic 96–137; BP diastolic 46–87; PULSE 72–100; RESP 14–31; TEMP 97.3–98.4; O2SAT 96–98
[2023-11-11 07:07] LABS: BASOPHILS % 0.2 % (0.0-2.0); DIFFERENTIAL COMMENT 0; HEMATOCRIT. 41.6 % (36.0-48.0); HEMOGLOBIN. 13.2 g/dL (12.0-16.0); LYMPHOCYTES % 7.9 % (20.0-50.0); MEAN CORPUSCULAR HEMOGLOBIN 24.4 pg (28.0-32.0); MEAN CORPUSCULAR HGB CONC 31.7 g/dL (31.0-37.0); MEAN CORPUSCULAR VOLUME 76.9 fL (81.0-99.0); MEAN PLATELET VOLUME 8.3 fl (7.4-10.4); MONOCYTES % 3.9 % (2.0-8.0); PLATELET 493 x1000/uL (130-400); RED CELL DISTRIBUTION WIDTH 15.7 % (11.6-14.6); WHITE BLOOD COUNT 17.2 x1000/uL (4.5-11.0)
[2023-11-11 07:14] LABS: POTASSIUM 3.8 mEq/L (3.5-5.1)
[2023-11-11 07:15] LABS: CALCIUM 9.3 mg/dL (8.7-10.4)
[2023-11-11 07:20] LABS: CREATININE 1.1 mg/dL (0.6-1.0)
[2023-11-12] VITALS (8 sets, daily range): BP systolic 87–138; BP diastolic 38–75; PULSE 73–89; RESP 14–33; TEMP 96.9–98.6
[2023-11-12 09:45] LABS: HEMATOCRIT. 42.3 % (36.0-48.0); HEMOGLOBIN. 13.3 g/dL (12.0-16.0); MEAN CORPUSCULAR HEMOGLOBIN 24.3 pg (28.0-32.0); MEAN CORPUSCULAR HGB CONC 31.5 g/dL (31.0-37.0); MEAN CORPUSCULAR VOLUME 77.1 fL (81.0-99.0); MEAN PLATELET VOLUME 8.5 fl (7.4-10.4); PLATELET 459 x1000/uL (130-400); RED BLOOD CELL COUNT 5.48 mill/uL (4.2-5.4); RED CELL DISTRIBUTION WIDTH 15.6 % (11.6-14.6); WHITE BLOOD COUNT 21.1 x1000/uL (4.5-11.0)
[2023-11-12 09:55] LABS: DIFFERENTIAL COMMENT 1
[2023-11-12 10:10] LABS: CALCIUM 8.9 mg/dL (8.7-10.4); CARBON DIOXIDE 27 mEq/L (21-32); CHLORIDE 91 mEq/L (98-107); POTASSIUM 4.3 mEq/L (3.5-5.1); SODIUM 126 mEq/L (136-145)
[2023-11-12 10:16] LABS: GLUCOSE 384 mg/dL (70-105); UREA NITROGEN BLOOD 25 mg/dL (9-23)
[2023-11-12 17:50] LABS: HYPOCHROMASIA 1+; MICROCYTOSIS 1+; PLATELET ESTIMATE NORMAL
[2023-11-13] VITALS: BP 142/62; PULSE 77; RESP 18; TEMP 97.3
[2023-11-13 04:00] VITALS: BP 135/64; PULSE 70; RESP 16; TEMP 97
[2023-11-13 06:51] LABS: HEMATOCRIT. 41.2 % (36.0-48.0); HEMOGLOBIN. 13.1 g/dL (12.0-16.0); MEAN CORPUSCULAR HEMOGLOBIN 24.3 pg (28.0-32.0); MEAN CORPUSCULAR HGB CONC 31.7 g/dL (31.0-37.0); MEAN CORPUSCULAR VOLUME 76.5 fL (81.0-99.0); MEAN PLATELET VOLUME 8.1 fl (7.4-10.4); PLATELET 520 x1000/uL (130-400); RED BLOOD CELL COUNT 5.38 mill/uL (4.2-5.4); RED CELL DISTRIBUTION WIDTH 15.5 % (11.6-14.6)
[2023-11-13 07:00] LABS: DIFFERENTIAL COMMENT 1
[2023-11-13 07:01] LABS: CALCIUM 8.6 mg/dL (8.7-10.4); CARBON DIOXIDE 29 mEq/L (21-32); CHLORIDE 95 mEq/L (98-107); POTASSIUM 3.3 mEq/L (3.5-5.1); SODIUM 133 mEq/L (136-145)
[2023-11-13 07:07] LABS: CREATININE 0.9 mg/dL (0.6-1.0); GLUCOSE 204 mg/dL (70-105); UREA NITROGEN BLOOD 22 mg/dL (9-23)
[2023-11-13 07:09] LABS: TROPONIN I HIGH SENSITIVITY 23 ng/L (3.0-34)
[2023-11-13] MEDS: POTASSIUM CHLORIDE 20MEQ/PACKET PO SCH (09:20)
[2023-11-13 11:15] LABS: PHOSPHORUS 3.9 mg/dL (2.5-4.9)
[2023-11-13 12:00] VITALS: BP 138/56; PULSE 81; RESP 19; TEMP 98.2
[2023-11-13 12:48] LABS: PLATELET ESTIMATE INCREASED
[2023-11-13 12:51] LABS: MICROCYTOSIS 1+
[2023-11-13 16:00] VITALS: BP 112/68; PULSE 82; RESP 18; TEMP 97.7
[2023-11-13 20:00] VITALS: BP 120/55; PULSE 80; RESP 16; TEMP 97.4
[2023-11-14] VITALS: BP 111/45; PULSE 76; RESP 16; TEMP 97
[2023-11-14 04:00] VITALS: BP 121/49; PULSE 72; RESP 16; TEMP 97.1
[2023-11-14 06:48] LABS: HEMATOCRIT. 41.3 % (36.0-48.0); HEMOGLOBIN. 13.2 g/dL (12.0-16.0); MEAN CORPUSCULAR HEMOGLOBIN 24.6 pg (28.0-32.0); MEAN CORPUSCULAR HGB CONC 31.9 g/dL (31.0-37.0); MEAN PLATELET VOLUME 8.1 fl (7.4-10.4); PLATELET 493 x1000/uL (130-400); RED BLOOD CELL COUNT 5.36 mill/uL (4.2-5.4); RED CELL DISTRIBUTION WIDTH 15.4 % (11.6-14.6); WHITE BLOOD COUNT 19.3 x1000/uL (4.5-11.0)
[2023-11-14 07:03] LABS: CHLORIDE 93 mEq/L (98-107); POTASSIUM 3.8 mEq/L (3.5-5.1); SODIUM 133 mEq/L (136-145)
[2023-11-14 07:04] LABS: CARBON DIOXIDE 30 mEq/L (21-32)
[2023-11-14 07:05] LABS: CALCIUM 8.4 mg/dL (8.7-10.4)
[2023-11-14 07:09] LABS: CREATININE 0.8 mg/dL (0.6-1.0); GLUCOSE 202 mg/dL (70-105)
[2023-11-14 07:10] LABS: UREA NITROGEN BLOOD 21 mg/dL (9-23)
[2023-11-14 07:25] LABS: DIFFERENTIAL COMMENT 1
[2023-11-14 08:00] VITALS: BP 137/56; PULSE 83; RESP 15; TEMP 97.9
[2023-11-14 12:00] VITALS: BP 120/54; PULSE 80; RESP 19; TEMP 98.7
[2023-11-14 14:09] LABS: ANISOCYTOSIS 1+; PLATELET ESTIMATE INCREASED
[2023-11-14 14:10] LABS: MICROCYTOSIS 1+
[2023-11-14 16:00] VITALS: BP 113/55; PULSE 81; RESP 15; TEMP 96.9
[2023-11-14 20:00] VITALS: BP 121/40; PULSE 60; RESP 16; TEMP 96.6
[2023-11-15] VITALS: BP 126/56; PULSE 87; RESP 18; TEMP 97.7
[2023-11-15 04:00] VITALS: BP 143/56; PULSE 86; RESP 16; TEMP 97.3
[2023-11-15 06:05] LABS: CHLORIDE 91 mEq/L (98-107); SODIUM 131 mEq/L (136-145)
[2023-11-15 06:06] LABS: CALCIUM 8.6 mg/dL (8.7-10.4); CARBON DIOXIDE 29 mEq/L (21-32)
[2023-11-15 06:11] LABS: CREATININE 0.9 mg/dL (0.6-1.0); GLUCOSE 255 mg/dL (70-105); UREA NITROGEN BLOOD 20 mg/dL (9-23)
[2023-11-15 06:30] LABS: HEMOGLOBIN. 13.3 g/dL (12.0-16.0); MEAN CORPUSCULAR HEMOGLOBIN 24.3 pg (28.0-32.0); MEAN CORPUSCULAR HGB CONC 31.6 g/dL (31.0-37.0); MEAN PLATELET VOLUME 8.6 fl (7.4-10.4); PLATELET 466 x1000/uL (130-400); RED BLOOD CELL COUNT 5.46 mill/uL (4.2-5.4); RED CELL DISTRIBUTION WIDTH 16.2 % (11.6-14.6); WHITE BLOOD COUNT 18.3 x1000/uL (4.5-11.0)
[2023-11-15 06:35] LABS: DIFFERENTIAL COMMENT 1
[2023-11-15 08:00] VITALS: BP 136/68; PULSE 82; RESP 17; TEMP 98.8
[2023-11-15 12:00] VITALS: BP 117/69; PULSE 85; RESP 18; TEMP 97.9
[2023-11-15 14:08] LABS: ANISOCYTOSIS 1+; MICROCYTOSIS 1+; PLATELET ESTIMATE INCREASED
[2023-11-15 16:00] VITALS: BP 120/56; PULSE 96; RESP 19
[2023-11-15 20:00] VITALS: BP 132/52; PULSE 92; RESP 19; TEMP 98.1
[2023-11-15] MEDS: METHYLPREDNISOLONE SOD SUCC 40MG/ML (ACT-O-VIAL) IV SCH (21:06)
[2023-11-16] VITALS: BP 110/46; PULSE 87; RESP 19; TEMP 98.1
[2023-11-16 04:00] VITALS: BP 114/56; PULSE 67; RESP 19; TEMP 98
[2023-11-16 07:03] LABS: DIFFERENTIAL COMMENT 0; HEMATOCRIT. 42.6 % (36.0-48.0); HEMOGLOBIN. 13.6 g/dL (12.0-16.0); LYMPHOCYTES % 7.7 % (20.0-50.0); MEAN CORPUSCULAR HEMOGLOBIN 24.8 pg (28.0-32.0); MEAN CORPUSCULAR HGB CONC 32.1 g/dL (31.0-37.0); MEAN CORPUSCULAR VOLUME 77.2 fL (81.0-99.0); MEAN PLATELET VOLUME 8.5 fl (7.4-10.4); MONOCYTES % 3.8 % (2.0-8.0); NEUTROPHILS % 88.5 % (40.0-76.0); PLATELET 455 x1000/uL (130-400); RED BLOOD CELL COUNT 5.51 mill/uL (4.2-5.4); RED CELL DISTRIBUTION WIDTH 15.9 % (11.6-14.6); WHITE BLOOD COUNT 16.1 x1000/uL (4.5-11.0)
[2023-11-16 07:11] LABS: CARBON DIOXIDE 28 mEq/L (21-32); CHLORIDE 94 mEq/L (98-107); POTASSIUM 3.7 mEq/L (3.5-5.1); SODIUM 133 mEq/L (136-145)
[2023-11-16 07:13] LABS: CALCIUM 8.7 mg/dL (8.7-10.4)
[2023-11-16 07:17] LABS: CREATININE 0.8 mg/dL (0.6-1.0); GLUCOSE 115 mg/dL (70-105)
[2023-11-16 07:18] LABS: UREA NITROGEN BLOOD 21 mg/dL (9-23)
[2023-11-16 08:00] VITALS: BP 127/60; PULSE 88; RESP 18; TEMP 97.5
[2023-11-16] MEDS: POTASSIUM CHLORIDE 20MEQ/PACKET PO SCH (08:56)
[2023-11-16 12:00] VITALS: BP 130/67; PULSE 87; RESP 19; TEMP 96.1
[2023-11-16] MEDS ORDERED: LANTUSUD SUBCUT (14:48)
[2023-11-16] MEDS ORDERED: FURO40TA5 PO (14:48)
[2023-11-16] MEDS ORDERED: P20 MT (14:48)
[2023-11-16] MEDS ORDERED: COR6 PO (14:48)
[2023-11-16] MEDS ORDERED: LOSA25TA26 PO (14:48)
[2023-11-16] MEDS ORDERED: PANT40TA51 MT (14:48)
[2023-11-16] MEDS ORDERED: MELA3TAB40 PO (14:48)
[2023-11-16] MEDS ORDERED: AMLO5TAB88 MT (14:48)
[2023-11-16 15:02] VITALS: BP 133/70; PULSE 82; TEMP 97.9; O2SAT 97
[2023-11-16 16:00] VITALS: BP 133/70; PULSE 82; RESP 20; TEMP 97.8
== END 2023-11-16 16:15 | disposition home or self-care (01) | DRG 870 ==
LOC: ER 03:46 → EDBEDREQ 04:09 → MICUNO 05:11 → EDBEDREQ 05:14 → 5EST 11-09 16:55 → 7EST 11-12 15:39
PROVIDERS: ADMIT Internal Medicine; ATTEND Internal Medicine
PROC: 5A1955Z Respiratory Ventilation, Greater than 96 Consecutive Hours (ICD-10-PCS; principal; 2023-10-31)
PROC: 0BH17EZ Insertion of Endotracheal Airway into Trachea, Via Natural or Artificial Opening (ICD-10-PCS; 2023-10-31)
PROC: 06HY33Z Insertion of Infusion Device into Lower Vein, Percutaneous Approach (ICD-10-PCS; 2023-10-31)
PROC: B54MZZA Ultrasonography of Right Upper Extremity Veins, Guidance (ICD-10-PCS; 2023-10-31)
PROC: 02HV33Z Insertion of Infusion Device into Superior Vena Cava, Percutaneous Approach (ICD-10-PCS; 2023-11-03)
PROC: B548ZZA Ultrasonography of Superior Vena Cava, Guidance (ICD-10-PCS; 2023-11-03)
DX: A41.9 Sepsis, unspecified organism (principal); J96.01 Acute respiratory failure with hypoxia; J96.02 Acute respiratory failure with hypercapnia; J18.9 Pneumonia, unspecified organism; E11.10 Type 2 diabetes mellitus with ketoacidosis without coma; R65.21 Severe sepsis with septic shock; I21.4 Non-ST elevation (NSTEMI) myocardial infarction; G93.41 Metabolic encephalopathy; N17.9 Acute kidney failure, unspecified; I42.9 Cardiomyopathy, unspecified; I47.10 Supraventricular tachycardia, unspecified; I13.0 Hypertensive heart and chronic kidney disease with heart failure and stage 1 through stage 4 chronic kidney disease, or unspecified chronic kidney disease; E11.52 Type 2 diabetes mellitus with diabetic peripheral angiopathy with gangrene; I96 Gangrene, not elsewhere classified; I50.42 Chronic combined systolic (congestive) and diastolic (congestive) heart failure; Z20.822 Contact with and (suspected) exposure to COVID-19; I27.20 Pulmonary hypertension, unspecified; E83.39 Other disorders of phosphorus metabolism; E11.51 Type 2 diabetes mellitus with diabetic peripheral angiopathy without gangrene; N18.9 Chronic kidney disease, unspecified; E11.22 Type 2 diabetes mellitus with diabetic chronic kidney disease; E83.42 Hypomagnesemia; E87.6 Hypokalemia; Z79.4 Long term (current) use of insulin; Z89.512 Acquired absence of left leg below knee
CPT/HCPCS: 31500; 36415; 36573; 36600; 71045; 71275; 76770; 80048; 80051; 80053; 80076; 80305; 80320; 81003; 82375; 82550; 82805; 82962; 83036; 83605; 83735; 83880; 83930; 84100; 84145; 84478; 84484; 85025; 85379; 87070; 87426; 87804; 92610; 93005; 93306; 93970; 94003; 94640; 94667; 97162; 97166; 97530; 99291; A6261; C1725; C9113; J1644; J1650; J1815; J1940; J2250; J2370; J2405; J2543; J2704; J2919; J2920; J3370; J3475; J3480; J3490; J7030; J7042; J7050; J7608; Q9967; A5200; G0480